=== PATIENT | male | born 1985 | race Two or more races ===

== ENCOUNTER 2016-04-03 19:09 | Emergency (ER) | payer OTHER ==
[~2016-04-03] VITALS: Ht 172.7 cm; Wt 77.1 kg
[~2016-04-03 19:09] MED LIST: ALBU8.5H4
[2016-04-03] MEDS ORDERED: ALBUTEROL FS 2.5 MG/3 ML VIAL.NEB ONE (19:22)
[2016-04-03] MEDS ORDERED: predniSONE 20 MG TABLET ONE (19:27)
[2016-04-03] MEDS ORDERED: predniSONE 20 MG TABLET PO ONE (19:30)
[2016-04-03] MEDS ORDERED: methylPREDNISolone SOD SUCC 125 MG/2ML VIAL IV ONE (19:30)
[2016-04-03] MEDS ORDERED: IPRATROPIUM NEB FS 0.5 MG/2.5 ML AMPUL.NEB NEB ONE (19:30)
[2016-04-03] MEDS ORDERED: IV NS 0.9% 1,000 ML BAG IV ONE (19:30)
[2016-04-03] MEDS ORDERED: ALBUTEROL FS 2.5 MG/3 ML VIAL.NEB NEB ONE (19:30)
[2016-04-03] MEDS ORDERED: LORAZEPAM 1 MG TABLET ONE (20:06)
[2016-04-03] MEDS ORDERED: LORAZEPAM 1 MG TABLET PO ONE (20:30)
[2016-04-03 22:44] VITALS: BP 121/60
== END 2016-04-03 22:45 | disposition home or self-care (01) ==
LOC: ER 19:10
DX: J45.901 Unspecified asthma with (acute) exacerbation (principal); F41.9 Anxiety disorder, unspecified
CPT/HCPCS: 71010; 94644; 99285; A4606; J7512; Z7610

== ENCOUNTER 2019-04-18 13:18 | Emergency (ER) | payer MEDICAID, OTHER ==
[~2019-04-18] VITALS: Ht 172.7 cm; Wt 77.1 kg
[2019-04-18 13:28] VITALS: BP 132/78
--- NOTE | 2019-04-18 13:36 | NUR ---
Patient discharged to home in stable condition. Written and verbal after care instructions given. Patient verbalizes understanding of instruction. Prescription given.
== END 2019-04-18 13:36 | disposition home or self-care (01) ==
LOC: ER 13:26
DX: J45.901 Unspecified asthma with (acute) exacerbation (principal); Z76.0 Encounter for issue of repeat prescription; F41.9 Anxiety disorder, unspecified; Z79.899 Other long term (current) drug therapy

== ENCOUNTER 2020-06-11 01:30 | Emergency (ER) | payer MEDICAID ==
[~2020-06-11] VITALS: Ht 172.7 cm; Wt 81.6 kg
[2020-06-11] MEDS ORDERED: LORAZEPAM 0.5 MG TABLET ONE (01:47)
[2020-06-11] MEDS ORDERED: LORAZEPAM 0.5 MG TABLET PO ONE (02:00)
[2020-06-11 02:07] LABS: CALCIUM, SERUM 9.6 mg/dL (8.5-10.1); CREATININE 1.3 mg/dL (0.6-1.3); POTASSIUM 3.6 mmol/L (3.5-5.1)
[2020-06-11 02:31] VITALS: BP 114/68
== END 2020-06-11 02:36 | disposition home or self-care (01) ==
LOC: ER 01:32
DX: F41.9 Anxiety disorder, unspecified (principal); R25.2 Cramp and spasm; J45.909 Unspecified asthma, uncomplicated; Z79.899 Other long term (current) drug therapy
CPT/HCPCS: 36415; 80048-TC; 82550-TC; 82553

== ENCOUNTER 2022-06-21 20:45 | Emergency (ER) | payer MEDICAID ==
[~2022-06-21] VITALS: Ht 172.7 cm; Wt 89.8 kg
[2022-06-21 22:25] VITALS: BP 156/88
--- NOTE | 2022-06-21 22:25 | NUR ---
PATIENT BROUGHT IN BY FATHER FROM HOME. COMPLAINING OF PANIC ATTACK SINCE . HE WAS MEDICATED BY HIS PCP. TODAY HE CLAIMED HE HAS SOB AND TINGLING SENSATION IN THE EXTREMITIES. PATIENT IS ANXIOUS AND JITTERY. SEEN BY DR BARNES AT TRIAGE. VITALS CHECKED.
--- NOTE | 2022-06-21 22:26 | NUR ---
AFTER TALKING TO . PT DECIDED TO GO HOME AND GO BACK TO HIS PRIMARY MD
== END 2022-06-22 01:05 | disposition home or self-care (01) ==
LOC: ER 20:51
DX: F41.9 Anxiety disorder, unspecified (principal); J45.909 Unspecified asthma, uncomplicated; Z79.899 Other long term (current) drug therapy

== ENCOUNTER 2024-12-02 07:56 | Emergency (ER) | payer MEDICAID, OTHER ==
[~2024-12-02] VITALS: Ht 172.7 cm; Wt 90.7 kg
[2024-12-02 08:08] VITALS: TEMP 98.8
[2024-12-02] MEDS ORDERED: ALBUTEROL FS 2.5 MG/3 ML VIAL.NEB ONE (09:12)
[2024-12-02] MEDS ORDERED: IPRATROPIUM NEB FS 0.5 MG/2.5 ML AMPUL.NEB ONE (09:12)
[2024-12-02] MEDS ORDERED: Magnesium 1GM/D5W 100ML PREMIX 200 ML IV ONE (09:14)
[2024-12-02 09:15] VITALS: O2SAT 97
[2024-12-02] MEDS: IV NS 0.9% 1,000 ML BAG IV ONE (09:15)
[2024-12-02] MEDS: ALBUTEROL FS 2.5 MG/3 ML VIAL.NEB NEB ONE (09:16)
[2024-12-02] MEDS: IPRATROPIUM NEB FS 0.5 MG/2.5 ML AMPUL.NEB NEB ONE (09:16)
[2024-12-02] MEDS: Magnesium 1GM/D5W 100ML PREMIX 200 ML IV ONE (09:21)
[2024-12-02 10:15] VITALS: O2SAT 100
[2024-12-02] MEDS ORDERED: PRED50TA PO (10:31)
[2024-12-02 11:29] VITALS: BP 149/85; O2SAT 100
== END 2024-12-02 11:20 | disposition home or self-care (01) ==
LOC: ER 08:08
DX: J06.9 Acute upper respiratory infection, unspecified (principal); J45.901 Unspecified asthma with (acute) exacerbation; B97.89 Other viral agents as the cause of diseases classified elsewhere; Z79.52 Long term (current) use of systemic steroids; Z20.822 Contact with and (suspected) exposure to COVID-19
CPT/HCPCS: 99285; 96365; 71045; 96361; 96375; 87426; 94644; J2919; J7030; J3475; A4223